=== PATIENT | female | born 1970 | race Caucasian/White ===

== ENCOUNTER 2018-01-27 21:27 | Emergency (ER) | payer OTHER ==
[2018-01-27 21:41] VITALS: O2SAT 97
[2018-01-27 23:07] VITALS: BP 147/84; PULSE 94; RESP 20; TEMP 99.1
--- NOTE | 2018-01-27 23:07 | C.PDOC ---
Time Seen by Provider: 01/27/18 22:07 Chief Complaint (Nursing): Lower Extremity Problem/Injury Past Medical History Vital Signs: Last Vital Signs Temp 100.7 F H 01/27/18 21:35 Pulse 116 H 01/27/18 21:35 Resp 18 01/27/18 21:35 BP 180/98 H 01/27/18 21:35 Pulse Ox 97 01/27/18 21:35 - Social History Hx Alcohol Use: No Hx Substance Use: No - Immunization History Hx Tetanus Toxoid Vaccination: No Hx Influenza Vaccination: No Hx Pneumococcal Vaccination: No ED Course And Treatment O2 Sat by Pulse Oximetry: 97 Disposition - Disposition Forms: [facility] (Turkmen)
--- NOTE | 2018-01-27 23:10 | C.PDOC ---
History Of Present Illness 47 year old female presents to the ED c/o right buttock pain radiating to his right thigh and lower leg. Patient reports her pain worsens with ambulation. Patient reports having similar episodes of the symptoms the past but usually would resolved on their own. Patient denies CP, abdominal pain, diarrhea, urinary/bowel incontinence, saddle anesthesia, UTI sx, weakness. numbness. Time Seen by Provider: 01/27/18 22:07 Chief Complaint (Nursing): Lower Extremity Problem/Injury History Per: Patient History/Exam Limitations: no limitations Onset/Duration Of Symptoms: Days Current Symptoms Are (Timing): Still Present Recent travel outside of the [place]: No Additional History Per: Patient - Knee Description Of Injury: Other Currently Unable To: Bend Or Move - Ankle/Foot Description Of Injury: Other Currently Unable To: Bend Or Move Past Medical History Reviewed: Historical Data, Nursing Documentation, Vital Signs Vital Signs: Last Vital Signs Temp 99.1 F 01/27/18 23:07 Pulse 94 H 01/27/18 23:07 Resp 20 01/27/18 23:07 BP 147/84 01/27/18 23:07 Pulse Ox 97 01/27/18 23:40 - Medical History PMH: No Chronic Diseases Surgical History: No Surg Hx Family History: States: Unknown Family Hx - Social History Hx Alcohol Use: No Hx Substance Use: No - Immunization History Hx Tetanus Toxoid Vaccination: No Hx Influenza Vaccination: No Hx Pneumococcal Vaccination: No Review Of Systems Constitutional: Negative for: Fever, Chills Gastrointestinal: Negative for: Nausea, Vomiting, Abdominal Pain Musculoskeletal: Positive for: Other (Rt buttock/ leg pain) Skin: Negative for: Rash Neurological: Negative for: Weakness, Numbness Physical Exam - Physical Exam Appears: Non-toxic, No Acute Distress Skin: Normal Color, Warm, Dry Head: Atraumatic, Normacephalic Eye(s): bilateral: Normal Inspection, PERRL Oral Mucosa: Moist Neck: Normal ROM, Supple Cardiovascular: Rhythm Regular Respiratory: Normal Breath Sounds Gastrointestinal/Abdominal: Soft, No Tenderness Back: Paraspinal Tenderness (Rt), Straight Leg Raising (positive at 45 degrees) , Other (right buttock tenderness on palpation. no swelling, erythema, lesions) Extremity: Normal ROM, No Tenderness, No Pedal Edema, No Calf Tenderness, Capillary Refill (< 2 seconds), No Swelling Extremity: Bilateral: Atraumatic, Normal Color And Temperature Pulses: Left Dorsalis Pedis: Normal, Right Dorsalis Pedis: Normal Neurological/Psych: Oriented x3, Normal Speech, Normal Motor, Normal Sensation Gait: Steady ED Course And Treatment O2 Sat by Pulse Oximetry: 97 (ON RA) Pulse Ox Interpretation: Normal Progress Note: Plan: - Toradol 30 mg IM. - Valium 5 mg PO. On reassessment, patient is resting comfortably, with improvement of back pain. Patient remains afebrile, with no bony tenderness, extremity numbness or weakness, or abdominal pain. Patient is ambulatory in the emergency department with no signs of discomfort. Patient was advised to follow up with physician/clinic in 1-2 days. 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 - Scribe Statement The provider has reviewed the documentation as recorded by the Scribe Mich Miller All medical record entries made by the Scribe were at my direction and personally dictated by me. I have reviewed the chart and agree that the record accurately reflects my personal performance of the history, physical exam, medical decision making, and the department course for this patient. I have also personally directed, reviewed, and agree with the discharge instructions and disposition.
== END 2018-01-27 23:15 | disposition home or self-care (01) ==
LOC: C.ER 21:27
DX: M54.31 Sciatica, right side (principal)
CPT/HCPCS: 96372; 99284; J1885

== ENCOUNTER 2018-07-06 14:48 | Emergency (ER) | payer OTHER ==
[2018-07-06 16:24] LABS: SQUAMOUS EPITHIAL 18 /hpf (0-5); URINE BACTERIA RARE (<OCC); URINE BILIRUBIN NEGATIVE (NEGATIVE); URINE BLOOD 2+ (NEGATIVE); URINE CLARITY Hazy (Clear); URINE COLOR Yellow (YELLOW); URINE GLUCOSE (UA) NORMAL (Normal); URINE LEUKOCYTE ESTERASE NEG Leu/uL (Negative); URINE PROTEIN NEGATIVE (NEGATIVE); URINE UROBILINOGEN NORMAL mg/dL (0.2-1.0)
[2018-07-06 16:27] LABS: HCG,QUALITATIVE URINE NEGATIVE (NEGATIVE)
[2018-07-06 16:32] LABS: EOS # 0.1 K/uL (0.0-0.7); EOS % 1.8 % (0.0-4.0); HEMOGLOBIN 12.4 g/dL (11.0-16.0); LYMPH # 1.2 K/uL (1.0-4.3); LYMPH % 35.2 % (20.0-40.0); MEAN CELL VOLUME 70.9 fL (81.0-99.0); MEAN CORPUSCULAR HEMOGLOBIN 23.3 pg (27.0-31.0); MEAN CORPUSCULAR HGB CONC 32.8 g/dL (33.0-37.0); MEAN PLATELET VOLUME 8.1 fL (7.2-11.7); MONO # 0.2 K/uL (0.0-0.8); MONO % 4.9 % (0.0-10.0); NEUT % 57.1 % (50.0-75.0); NRBC % 0.2 % (0.0-2.0); RBC 5.35 Mil/uL (3.80-5.20); RED CELL DISTRIBUTION WIDTH 16.1 % (11.5-14.5); WHITE BLOOD COUNT 3.5 K/uL (4.8-10.8)
[2018-07-06 16:52] LABS: BLOOD UREA NITROGEN 16 mg/dL (7-17); CALCIUM 9.2 mg/dl (8.6-10.4); GFR NON-AFRICAN AMERICAN > 60
[2018-07-06 16:54] LABS: ALBUMIN 5.1 g/dL (3.5-5.0); ALT/SGPT 24 U/L (9-52); AST/SGOT 66 U/L (14-36)
[2018-07-06] MEDS ORDERED: Sodium Chloride 0.9% 1,000 ML IV ONE (17:03)
[2018-07-06] MEDS ORDERED: Sodium Chloride 0.9% 1,000 ML ONE (17:34)
--- NOTE | 2018-07-06 18:07 | C.PDOC ---
History Of Present Illness 47 y/o female presents to ER complaining of pelvic and lower back pain, as well as cramping with vaginal bleeding for approximately 1 week. Patient denies nausea, vomiting, diarrhea, fever, dysuria, vaginal discharge. She states she has IUD, denies possibility of . Patient does not have/has not seen an [employer] for symptoms. Time Seen by Provider: 07/06/18 16:09 Chief Complaint (Nursing): Abdominal Pain History Per: Patient History/Exam Limitations: no limitations Onset/Duration Of Symptoms: Days Current Symptoms Are (Timing): Still Present Severity: Mild Location Of Pain/Discomfort: Suprapubic Quality Of Discomfort: Cramping, "Pain" Past Medical History Reviewed: Historical Data, Nursing Documentation, Vital Signs Vital Signs: Last Vital Signs Temp 99.3 F 07/06/18 15:12 Pulse 111 H 07/06/18 15:12 Resp 18 07/06/18 15:12 BP 149/85 07/06/18 15:12 Pulse Ox 100 07/06/18 15:12 - Medical History PMH: HTN, Hypercholesterolemia Family History: States: No Known Family Hx - Social History Hx Alcohol Use: No Hx Substance Use: No - Immunization History Hx Tetanus Toxoid Vaccination: No Hx Influenza Vaccination: No Hx Pneumococcal Vaccination: No Review Of Systems Constitutional: Negative for: Fever, Chills Cardiovascular: Negative for: Chest Pain, Palpitations Respiratory: Negative for: Shortness of Breath Gastrointestinal: Negative for: Nausea, Vomiting, Diarrhea Genitourinary: Positive for: Vaginal Bleeding (and cramping), Pelvic Pain. Negative for: Dysuria Musculoskeletal: Positive for: Back Pain (lower) Physical Exam - Physical Exam Appears: Well, Non-toxic, No Acute Distress Skin: Warm, Dry Eye(s): bilateral: Normal Inspection Oral Mucosa: Moist Cardiovascular: Rhythm Regular Respiratory: Normal Breath Sounds, No Rales, No Rhonchi, No Wheezing Gastrointestinal/Abdominal: Bowel Sounds, Soft, Tenderness (mild suprapubic TTP, (-) McBurney's ), No Guarding, No Rebound Back: Normal Inspection, No CVA Tenderness Neurological/Psych: Oriented x3 Gait: Steady ED Course And Treatment - Laboratory Results Result Diagrams: 07/06/18 16:25 07/06/18 16:25 O2 Sat by Pulse Oximetry: 100 (RA) Pulse Ox Interpretation: Normal Progress Note: Blood work, UA, transvaginal US ordered and reviewed. Patient given IV NS bolus. Disposition - Disposition Disposition Time: 19:00 Condition: STABLE Forms: [facility] (Turkmen) - Clinical Impression Clinical Impression: Vaginal bleeding, Pelvic pain - Scribe Statement The provider has reviewed the documentation as recorded by the Daryaibghada Gomez Provider Attestation: All medical record entries made by the Daryaibe were at my direction and personally dictated by me. I have reviewed the chart and agree that the record accurately reflects my personal performance of the history, physical exam, medical decision making, and the department course for this patient. I have also personally directed, reviewed, and agree with the discharge instructions and disposition. Physician Patient Turnover Patient Signed Over To: Florin Horta Handoff Comments: pending reassessment, transvaginal US
[2018-07-06 19:14] VITALS: RESP 20
[2018-07-06] MEDS ORDERED: Albuterol-Ipratrop 3 mg / 0.5 (3 ml) UD ONE (19:47)
[2018-07-06 21:10] VITALS: BP 175/80; PULSE 112; TEMP 98.9; O2SAT 98
--- NOTE | 2018-07-07 10:25 | US ---
Date of service: 07/06/2018 HISTORY: PELVIC PAIN, VAGINAL BLEEDING COMPARISON: None available. TECHNIQUE: Transabdominal and transvaginal pelvic ultrasound was performed. FINDINGS: UTERUS: Measures 10.1 x 5.4 x 6.4 cm. Anteverted, enlarged with diffuse heterogeneous myometrial echotexture. There is a posterior wall 1.5 x 1.1 x 1.0 cm intramural fibroid in the midbody of the uterus. ENDOMETRIUM: Measures 9.0 mm in diameter. An intrauterine device remains in customary position. CERVIX: No cervical abnormality identified. RIGHT OVARY: Not visualized. LEFT OVARY: Measures 3.0 x 1.8 x 2.2 cm. No solid mass. Normal flow. There is a 1.8 x 1.1 x 0.1 cm simple cyst. FREE FLUID: No significant free fluid noted. OTHER FINDINGS: None. IMPRESSION: Enlarged uterus with diffuse myometrial echotexture. Posterior wall 1.5 x 1.1 x 1.0 cm intramural fibroid in the midbody of the uterus. Intrauterine device remains in satisfactory position. A preliminary report was provided by [facility].
== END 2018-07-06 20:58 | disposition home or self-care (01) ==
LOC: C.ER 14:48
DX: D25.9 Leiomyoma of uterus, unspecified (principal); R10.2 Pelvic and perineal pain; N93.9 Abnormal uterine and vaginal bleeding, unspecified
CPT/HCPCS: 76830; 76856; 80053; 81001; 84703; 85025; 96360; 99285; J7030